=== PATIENT | male | born 1990 | race Caucasian/White ===

== ENCOUNTER 2023-03-01 16:20 | Emergency (ER) | payer SELFPAY ==
[~2023-03-01] VITALS: Ht 160 cm; Wt 68.0 kg
[2023-03-01 16:24] VITALS: BP 117/67; PULSE 84; RESP 14; TEMP 97.8; O2SAT 97
[2023-03-01] MEDS ORDERED: TETRACAINE HCL/PF 0.5% OPTH 4 ML BTL OP ONE (17:30)
[2023-03-01] MEDS ORDERED: FLUORESCEIN OPTH STRIP 1 MG OP ONE (17:30)
--- NOTE | 2023-03-01 17:32 | NUR ---
URINE, FLU, COVID, STREP COLLECTED AND WALKED TO LAB.
--- NOTE | 2023-03-01 17:55 | NUR ---
32YO M PRESENTS WITH MULTIPLE COMPLAINTS, SORE THROAT X 3WKS, FEVER, BILAT KNEE/FOOT/HIP, BODY ACHES, REDNESS TO BILAT EYE X 1WK. RT SHOULDER PAIN TODAY. PT STATES HE WENT TO [facility] 1WK A[facility], DC WITH NO MEDS. PT DENIES N, V, D , CHILLS, ARRIAGA, URINARY SYMPTOMS, RUNNY NOSE. AMBULATORY, SKIN DRY/INTACT. NAD, SAFETY MAINTAINED, CALL LIGHT IN REACH. HX: DENIES NKA
[2023-03-01 18:04] LABS: BASOPHILS % (AUTO) 0.4 % (0.0-2.0); EOSINOPHILS # (AUTO) 0.2 K/uL (0-0.4); EOSINOPHILS % (AUTO) 2.5 % (0.0-4.0); HEMATOCRIT 36.2 % (36-52); HEMOGLOBIN 12.8 g/dL (12.0-18.0); LYMPHOCYTES # (AUTO) 1.1 K/uL (2.0-11.5); LYMPHOCYTES % (AUTO) 11.3 % (20.5-51.1); MEAN CORPUSCULAR HEMOGLOBIN 31 pg (27-31); MEAN CORPUSCULAR HGB CONC 35 g/dL (33-37); MEAN CORPUSCULAR VOLUME 87.3 fL (80-94); MONOCYTES # (AUTO) 0.8 K/uL (0.8-1.0); MONOCYTES % (AUTO) 8.4 % (1.7-9.3); NEUTROPHILS # (AUTO) 7.6 K/uL (1.8-7.7); NEUTROPHILS % (AUTO) 77.4 % (42.2-75.2); PLATELET COUNT (AUTO) 261 K/uL (140-450); RED BLOOD CELL COUNT(AUTO) 4.15 MIL/uL (4.20-6.10); RED CELL DISTRIBUTION WIDTH 12.4 % (11.6-13.7); WHITE BLOOD COUNT (AUTO) 9.9 K/uL (4.8-10.8)
[2023-03-01 18:23] LABS: ALBUMIN 2.9 g/dL (3.4-5.0); ANION GAP 11.5 (8-16); CARBON DIOXIDE 28.3 mmol/L (21-32); POTASSIUM 3.8 mmol/L (3.5-5.1); TOTAL BILIRUBIN 1.1 mg/dL (0.0-1.0)
[2023-03-01 18:46] LABS: APPEARANCE,URINE CLEAR (CLEAR); BILIRUBIN,URINE 1+ (NEGATIVE); BLOOD, URINE 2+ (NEGATIVE); COLOR,URINE YELLOW (YELLOW); LEUKOCYTE ESTERASE ,URINE TRACE (NEGATIVE); NITRITE, URINE NEGATIVE (NEGATIVE); UGLUCOSE NEGATIVE (NEGATIVE)
[2023-03-01 18:59] LABS: RBC,URINE 11-20 (MOD) /HPF (0-5); TRICHOMONAS,URINE None Seen /HPF (None Seen); YEAST,URINE None Seen /HPF (None Seen)
[2023-03-01] MEDS ORDERED: KETOROLAC 30 MG/ML VIAL IVP ONE ×2 (19:15→19:50)
[2023-03-01] MEDS ORDERED: NACL 0.9% 1,000 ML IV ONE (19:15)
[2023-03-01] MEDS ORDERED: cefTRIAXone 1,000 MG VIAL ONE (19:24)
[2023-03-01 20:50] LABS: BARBITURATE, URINE NEGATIVE ng/ml (NEG <=200); BENZODIAZEPINE, URINE NEGATIVE ng/mL (NEG <=200); CANNABINOID, URINE NEGATIVE ng/mL (NEG <=50); COCAINE, URINE NEGATIVE ng/mL (NEG <=300); OPIATE, URINE POSITIVE ng/mL (NEG <=2000); PHENCYCLIDINE SCREEN,URINE NEGATIVE ng/mL (NEG <=25)
[2023-03-01] MEDS ORDERED: NAPR-54 PO (22:20)
[2023-03-01] MEDS ORDERED: AZIT250T4 PO (22:20)
[2023-03-01] MEDS ORDERED: CEPH-588 PO (22:20)
[2023-03-01] MEDS ORDERED: PRED20TA5 PO (22:20)
[2023-03-01] MEDS ORDERED: predniSONE 20 MG TAB PO ONE (22:25)
[2023-03-01 23:35] VITALS: BP 114/64; PULSE 81; RESP 14; TEMP 97.5; O2SAT 97
--- NOTE | 2023-03-01 23:35 | NUR ---
Patient discharged with v/s stable. Written and verbal after care instructions given and explained. Patient alert, oriented and verbalized understanding of instructions. Ambulatory with steady gait. All questions addressed prior to discharge. ID band removed. Patient advised to follow up with PMD. Rx of Z=PACK, KEFLEX, NAPROSYN, PREDNISONE given. Patient educated on indication of medication including possible reaction and side effects. Opportunity to ask questions provided and answered.
== END 2023-03-01 23:35 | disposition home or self-care (01) ==
LOC: MED 16:20
DX: J18.9 Pneumonia, unspecified organism (principal); N39.0 Urinary tract infection, site not specified; M79.10 Myalgia, unspecified site; M19.90 Unspecified osteoarthritis, unspecified site; Z79.899 Other long term (current) drug therapy; Z20.822 Contact with and (suspected) exposure to COVID-19
CPT/HCPCS: 36415; 71045; 80053; 80305; 81001; 82550; 83605; 85025; 86308; 86592; 86703; 87040; 87081; 87086; 87426; 87491; 87804; 96365; 99284; J0696; J7512; Q0092